=== PATIENT | female | born 1945 | race Caucasian/White ===

== ENCOUNTER 2019-05-16 00:46 | Outpatient (CLI) | payer MEDICARE, OTHER, SELFPAY ==
--- NOTE | 2019-05-16 16:30 | DI.MAMMO_ITS ---
SYMPTOM/DIAGNOSIS: SCREENING Z12.31 BILATERAL SCREENING MAMMOGRAM: Mammograms were interpreted according to the usual protocol including computer analysis with CAD system, tomosynthesis and C view imaging. Comparison is made with exams from 2010 through 2016. The breasts are composed of heterogeneously dense fibroglandular tissue in the subareolar regions, breast density category C. No suspicious masses or suspicious microcalcifications are seen. There has been no significant change. IMPRESSION: Category 1 negative mammogram. Yearly screening mammography is recommended. Breast density category C. MQSA ASSESSMENT OF FINDINGS: Negative. Category 1. Patient will receive a letter notifying them of these results. Bi-RADS category C. The breasts are heterogeneously dense, which may obscure small masses.
== END 2019-05-16 01:06 ==
PROVIDERS: PCP Family Medicine; Visit Provider Family Medicine
DX: Z12.31 Encounter for screening mammogram for malignant neoplasm of breast (principal)
CPT/HCPCS: 77063; 77067

== ENCOUNTER 2022-04-02 03:17 | Outpatient (CLI) | payer MEDICARE, OTHER, SELFPAY ==
[2022-04-02 13:12] LABS: Anion Gap 9.4 mmol/L (3-11); BUN 19 mg/dL (7-18); CO2 28.6 mmol/L (21.0-32.0); CREATININE 0.7 mg/dL (0.55-1.02); Calculated LDL 143 mg/dL (<100); Chloride 104 mmol/L (98-107); Cholesterol 231 mg/dL (<200); Glucose 98 mg/dL (74-106); HDL Cholesterol 60 mg/dL (40-60); Potassium 4.4 mmol/L (3.5-5.1); Sodium 142 mmol/L (136-145); Triglyceride 141 mg/dL (<150)
== END 2022-04-02 03:18 | disposition home or self-care (01) ==
LOC: LOS 03:30
PROVIDERS: PCP Family Medicine; Visit Provider Family Medicine
DX: I10 Essential (primary) hypertension (principal)
CPT/HCPCS: 36415; 80048; 80061

== ENCOUNTER 2023-09-04 02:22 | Outpatient (CLI) | payer MEDICARE, SELFPAY ==
[2023-09-04 12:21] LABS: CREATININE 0.9 mg/dL (0.55-1.02); Estimated GFR 65.44 (mL/min/1.73m2); Potassium 3.6 mmol/L (3.5-5.1)
== END 2023-09-04 02:23 | disposition home or self-care (01) ==
LOC: LOS 02:23
PROVIDERS: PCP Nurse Practitioner Family; Visit Provider Nurse Practitioner Family
DX: I10 Essential (primary) hypertension (principal)
CPT/HCPCS: 36415; 82565; 84132

== ENCOUNTER 2024-03-29 07:36 | Emergency (ER) | payer MEDICARE, SELFPAY ==
[2024-03-29 07:41] VITALS: BP 191/85; PULSE 95; RESP 20; TEMP 36.7; O2SAT 96
--- NOTE | 2024-03-29 07:59 | ED.GENADUL_ITS ---
Discharge Plan Disposition Patient Disposition: Home Condition: Improving Discharge Details Clinical Impression: Cough Primary Care Provider: George Davis ED Provider: Stephan Castorena Home Meds and New Rx's Prescriptions: New albuterol sulfate 90 mcg/actuation aerosol powdr breath activated 2 inh inhalation Q6H PRN (Reason: shortness of breath or wheezing) Qty: 1 0RF No Action triamcinolone acetonide 0.1 % ointment 1 applic topical BID Qty: 15 0RF multivitamin 1 EACH tablet 1 tab PO DAILY losartan 50 mg tablet 50 mg PO DAILY Qty: 90 3RF hydrochlorothiazide 12.5 mg capsule 12.5 mg PO DAILY 90 Days Qty: 90 3RF acetaminophen [Tylenol] 325 MG tablet 1 tab PO PRN PRN Discharge Instructions Instructions: Acute Cough (ED) HPI General Date/Time Provider Initiated Documentation: 03/29/24 07:38 . HPI Narrative: 78-year-old female presents with 3 days of nonproductive cough. with similar symptomatology over the last week. No chest pain no nausea no vomiting no fevers. Related Data Home Medications Medication Instructions Recorded Confirmed multivitamin 1 tab PO DAILY 04/13/13 03/29/24 acetaminophen 325 mg tablet 1 tab PO PRN PRN 03/18/15 03/29/24 (Tylenol) triamcinolone acetonide 0.1 % 1 applic topical BID #15 grams 02/25/23 03/29/24 topical ointment hydrochlorothiazide 12.5 mg capsule 12.5 mg PO DAILY 90 days #90 09/23/23 03/29/24 tab-caps losartan 50 mg tablet 50 mg PO DAILY #90 tab-caps 09/23/23 03/29/24 albuterol sulfate 90 mcg/actuation 2 inh inhalation Q6H PRN shortness 03/29/24 breath activated powder inhaler of breath or wheezing #1 ea Previous Rx's Medication Instructions Recorded triamcinolone acetonide 0.1 % 1 applic topical BID #15 grams 02/25/23 topical ointment hydrochlorothiazide 12.5 mg capsule 12.5 mg PO DAILY 90 days #90 09/23/23 tab-caps losartan 50 mg tablet 50 mg PO DAILY #90 tab-caps 09/23/23 albuterol sulfate 90 mcg/actuation 2 inh inhalation Q6H PRN shortness 03/29/24 breath activated powder inhaler of breath or wheezing #1 ea Allergies Allergy/AdvReac Type Severity Reaction Status Date / Time Penicillins Allergy Intermediate passes out Unverified 03/29/24 08:03 hydrocodone Allergy Mild HIVES Unverified 03/29/24 08:03 monosodium glutamate AdvReac Hives Unverified 03/29/24 08:03 General Stated Complaint: RespSymp REEMA: 4 Review of Systems Narrative: Review of Systems Constitutional: negative Eyes: negative ENT: negative Cardiovascular: negative Respiratory: Cough Gastrointestinal: negative : negative Musculoskeletal: negative Skin: negative Neurologic: negative Psych: negative Exam Narrative Exam Narrative: Physical Examination General: alert, awake, cooperative, resting comfortably, no acute distress HEENT: normocephalic, atraumatic; PERRL, EOM intact, conjunctiva normal; no nasal discharge; moist mucous membranes, oral and pharyngeal mucosa normal, tolerating secretions Neck: supple, trachea midline; full ROM Chest: normal to inspection Respiratory: normal respiratory effort, speaking in full sentences, clear to auscultation, no wheezing, rales or rhonchi Cardiac: regular rate, regular rhythm, S1S2 intact, no murmurs rubs or gallops GI: abdomen soft, non-tender, non-distended; no palpable mass or hepatosplenomegaly Skin: no lesions, rashes or trauma appreciated Neuro: AAOx3, normal speech, moving all extremities Extremities: No peripheral edema Psych: Appropriate mood and affect Course Vital Signs Vital signs: Vital Signs Temperature 36.7 C 03/29/24 07:41 Pulse 95 H 03/29/24 07:41 Respiratory Rate 20 03/29/24 07:41 Blood Pressure 191/85 H 03/29/24 07:41 Pulse Oximetry 96 03/29/24 07:41 Temperature 36.7 C 03/29/24 07:41 Temperature Source Skin 03/29/24 07:41 Pulse 95 H 03/29/24 07:41 Respiratory Rate 20 03/29/24 07:41 Respiratory Effort Normal, Non-Labored 03/29/24 07:53 Respiratory Depth Normal 03/29/24 07:53 Blood Pressure 191/85 H 03/29/24 07:41 Blood Pressure Position Sitting 03/29/24 07:41 Pulse Oximetry 96 03/29/24 07:41 Oxygen Delivery Method Room Air 03/29/24 07:41 Oxygen Flow Rate 0 03/29/24 07:41 Pain Level 0 03/29/24 07:41 Medical Decision Making 78-year-old female presents with 3 days of nonproductive cough. with similar symptomatology over the last week. No chest pain no nausea no vomiting no fevers. Resting comfortably no acute distress, afebrile nontoxic not hypoxic, no peripheral edema, no chest pain, lungs clear bilaterally speaking full sentences no wheezing. Consider viral URI versus reactive airway to environmental allergen lower suspicion for ACS PE pneumothorax, must consider pneumonia lower suspicion for CHF or aortic pathology. Screening chest x-ray, nebs steroids close reassessment 9: 07 patient resting actively no acute distress lungs clear bilaterally x-ray clear. Quality:SDOH Health Related Social Needs: Health related social needs risk of homeless PFSH All Active Problems (Updated 03/29/24 @ 09:07 by Stephan Castorena MD) Cough (Acute) Essential hypertension (Acute) Medical History Thrombophlebitis Surgical History Extraction of cataract B/L Family History Mother , 85 No problems noted. Father , 85 Heart disease Sister No problems noted. Brother No problems noted. Daughter No problems noted. Son No problems noted. Maternal Grandfather No problems noted. Maternal Grandmother No problems noted. 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 Pets and animals: No Sexually active: No Current gender identity: female What is your relationship status?: How often do you talk on the phone with friends or family?: three or more times per week How often do you attend christianity or hinduism services?: 4 or more times per year Do you belong to any clubs or organized social groups?: no Panel score (0-1 are the most socially isolated patients): 3 What type of physical activity do you participate in: walking Duration: 30-45 minutes/day Pina/Restorationism: Mandaen Special pina needs: No Agree to transfusion: Yes Seatbelt use: always Helmet use: Yes Drive intox or ride w/intox 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
[2024-03-29 08:03] VITALS: RESP 2
[2024-03-29] MEDS: Dexamethasone 10 MG/ML VIAL PO (08:03)
[2024-03-29] MEDS: Albuterol 2.5 MG/3 ML INH SOLN VIAL UPD (08:03)
--- NOTE | 2024-03-29 08:56 | DI.RAD_ITS ---
Exam(s) XR CHEST 2V PA LATERAL EXAM: XR CHEST 2V PA LATERAL CLINICAL HISTORY: dry cough. TECHNIQUE: 2D digital imaging was performed. COMPARISON: No exams were available for comparison FINDINGS: 2 views: Heart size is normal. The mediastinum is not widened. Lungs are clear. No infiltrates nor pleural effusions. IMPRESSION: No acute pulmonary findings. DATA REPOSITORY: RADIATION DOSE DELIVERED:
[2024-03-29 09:17] VITALS: BP 139/98; PULSE 85; RESP 18; TEMP 36.6; O2SAT 95
== END 2024-03-29 09:18 | disposition home or self-care (01) ==
LOC: ER 09:14
PROVIDERS: Emergency Provider Emergency Medicine; PCP Nurse Practitioner Family
DX: R05.9 Cough, unspecified (principal); R09.81 Nasal congestion; I10 Essential (primary) hypertension
CPT/HCPCS: 94640; 99284; 71046; 99283; J1100; J7613

== ENCOUNTER 2024-04-01 09:27 | Emergency (ER) | payer MEDICARE, SELFPAY ==
[2024-04-01 09:35] VITALS: PULSE 96; RESP 16; TEMP 36.6; O2SAT 95
--- NOTE | 2024-04-01 10:00 | DI.RAD_ITS ---
Exam(s) XR CHEST 2V PA LATERAL EXAM: XR CHEST 2V PA LATERAL CLINICAL HISTORY: cough TECHNIQUE: 2D digital imaging was performed of the chest. Two images were obtained. PA and lateral views were obtained. COMPARISON: CR XR CHEST 2V PA LATERAL from 03/29/2024 FINDINGS: MEDIASTINUM: Normal. HEART: Normal. PULMONARY VASCULATURE: Normal. LUNGS: Clear. PLEURAL SPACE: No pleural effusion or pneumothorax. BONE:Within normal limits for the patient's age. OTHER FINDINGS:Normal. IMPRESSION: No acute pulmonary findings. DATA REPOSITORY: RADIATION DOSE DELIVERED:
--- NOTE | 2024-04-01 10:00 | RT.EKG_ITS ---
APPROVED REPORT Exam: Resting ECG Reason for Exam: abnormal rhythm Patient Location: E HR:97 bpm ECG Measurements Heart Rate 97 AXIS OH 147 P 16 QRSd 86 QRS 36 QT 353 T 31 QTc 445 Conclusion Sinus rhythm...normal P axis, V-rate 60- 99
[2024-04-01 11:06] LABS: COVID-19 PCR Negative (Negative); Influenza A PCR Negative (Negative); Influenza B PCR Negative (Negative); RSV PCR Negative (Negative)
[2024-04-01 11:07] LABS: Source Nasopharynx
--- NOTE | 2024-04-01 11:30 | ED.GENADUL_ITS ---
Discharge Plan Disposition Patient Disposition: Home Condition: Stable Discharge Details Clinical Impression: Cough, Bronchitis Primary Care Provider: George Davis ED Provider: Will Case Home Meds and New Rx's Prescriptions: Continued triamcinolone acetonide 0.1 % ointment 1 applic topical BID Qty: 15 0RF multivitamin 1 EACH tablet 1 tab PO DAILY losartan 50 mg tablet 50 mg PO DAILY Qty: 90 3RF hydrochlorothiazide 12.5 mg capsule 12.5 mg PO DAILY 90 Days Qty: 90 3RF acetaminophen [Tylenol] 325 MG tablet 1 tab PO PRN PRN albuterol sulfate 90 mcg/actuation aerosol powdr breath activated 2 inh inhalation Q6H PRN (Reason: shortness of breath or wheezing) Qty: 1 0RF Discharge Instructions Instructions: Acute Bronchitis (ED) Additional Instructions: Please drink plenty of fluids and allow for plenty of rest. Please contact your primary care physician to arrange follow-up. Call today to arrange timely follow-up for early next week. Return to the ER immediately for any worsening or new concerning symptoms. Referrals: George Davis, BANK CLERK [Primary Care Provider] - Discharge Data Discharge Date/Time-TO BE ENTERED AT DEPARTURE: 04/01/24 12:03 HPI General Mode of arrival: ambulatory . Date/Time Provider Initiated Documentation: 04/01/24 09:38 . Limitations to Documentation: no limitations . Information obtained by: patient . HPI Narrative: 78-year-old female here with nonproductive cough for the past 6 days. She was seen here on 03/29/2024 for same cough which she had had 3 days at that time. She had chest x-ray that did not reveal infiltrate. She was albuterol treatment and prescribed albuterol inhaler. She notes continued dry cough going on now 6 days. Patient denies associated chest pain. No leg swelling. She does note subjective fever. Related Data Home Medications Medication Instructions Recorded Confirmed multivitamin 1 tab PO DAILY 04/13/13 04/01/24 acetaminophen 325 mg tablet 1 tab PO PRN PRN 03/18/15 04/01/24 (Tylenol) triamcinolone acetonide 0.1 % 1 applic topical BID #15 grams 02/25/23 04/01/24 topical ointment hydrochlorothiazide 12.5 mg capsule 12.5 mg PO DAILY 90 days #90 09/23/23 04/01/24 tab-caps losartan 50 mg tablet 50 mg PO DAILY #90 tab-caps 09/23/23 04/01/24 albuterol sulfate 90 mcg/actuation 2 inh inhalation Q6H PRN shortness 03/29/24 04/01/24 breath activated powder inhaler of breath or wheezing #1 ea Previous Rx's Medication Instructions Recorded triamcinolone acetonide 0.1 % 1 applic topical BID #15 grams 02/25/23 topical ointment hydrochlorothiazide 12.5 mg capsule 12.5 mg PO DAILY 90 days #90 09/23/23 tab-caps losartan 50 mg tablet 50 mg PO DAILY #90 tab-caps 09/23/23 albuterol sulfate 90 mcg/actuation 2 inh inhalation Q6H PRN shortness 03/29/24 breath activated powder inhaler of breath or wheezing #1 ea Allergies Allergy/AdvReac Type Severity Reaction Status Date / Time Penicillins Allergy Intermediate passes out Unverified 04/01/24 09:35 hydrocodone Allergy Mild HIVES Unverified 04/01/24 09:35 monosodium glutamate AdvReac Hives Unverified 04/01/24 09:35 General Stated Complaint: RespSymp REEMA: 3 Review of Systems All systems reviewed & are unremarkable except as noted in HPI and below Constitutional Constitutional: Reports fever(s) Cardiovascular Cardiovascular: Denies chest pain Respiratory Respiratory: Reports cough Exam Const General: cooperative and no acute distress HENMT Mouth: moist mucous membranes Eyes Conjunctivae: normal conjunctivae Sclera: normal sclerae Neck Neck: trachea midline and supple Resp Auscultation: clear to auscultation bilaterally, no rales, no rhonchi and no wheezes Cardio Rate: regular rate and not tachycardic Rhythm: regular rhythm GI Palpation: soft, not firm, no guarding, no masses, not rigid and nontender Skin General skin exam: no rashes or lesions noted Neuro General: patient alert, patient awake, patient oriented x3 and tone normal Extrem General: no pedal edema, no calf tenderness and no edema Course Vital Signs Vital signs: Vital Signs Temperature 36.6 C 04/01/24 09:35 Pulse 96 H 04/01/24 09:35 Respiratory Rate 16 04/01/24 09:35 Pulse Oximetry 95 04/01/24 09:35 Temperature 36.6 C 04/01/24 09:35 Temperature Source Oral 04/01/24 09:35 Pulse 96 H 04/01/24 09:35 Respiratory Rate 16 04/01/24 09:35 Respiratory Effort Normal, Non-Labored 04/01/24 09:38 Respiratory Depth Normal 04/01/24 09:38 Pulse Oximetry 95 04/01/24 09:35 Oxygen Delivery Method Room Air 04/01/24 09:35 Oxygen Flow Rate 0 04/01/24 09:35 Pain Level 6 04/01/24 09:35 Lab/Test Results Lab/Test Results: Laboratory Tests Range/Units 04/01/24 10:18 COVID-19 Source Nasopharynx SARS-CoV-2 (PCR) (Negative) Negative Influenza Type A (PCR) (Negative) Negative Influenza Type B (PCR) (Negative) Negative RSV (PCR) (Negative) Negative Medical Decision Making 78-year-old female here with nonproductive cough for the past 6 days. Patient is afebrile and hemodynamically stable. She does have irregular rhythm noted on examination. Patient is saturating well in no respiratory distress. Considered influenza and COVID. Fluvid negative. EKG was reviewed and interpreted by me: Please report, sinus rhythm 97 bpm, multiple premature complexes. Chest x-ray reviewed and interpreted by radiology: No acute pulmonary findings. Suspect viral respiratory infection. Plan for outpatient follow-up with PCP. All results were discussed with the patient. Usual customary discharge instructions reviewed. Patient should have close outpatient follow-up next week for reassessment. Quality:SDOH Health Related Social Needs: Health related social needs risk of homeless PFSH All Active Problems Bronchitis (Acute) Cough (Acute) Essential hypertension (Acute) Medical History Thrombophlebitis Surgical History Extraction of cataract B/L Family History Mother , 85 No problems noted. Father , 85 Heart disease Sister No problems noted. Brother No problems noted. Daughter No problems noted. Son No problems noted. Maternal Grandfather No problems noted. Maternal Grandmother No problems noted. 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 Pets and animals: No Sexually active: No Current gender identity: female What is your relationship status?: How often do you talk on the phone with friends or family?: three or more times per week How often do you attend advent or moravian services?: 4 or more times per year Do you belong to any clubs or organized social groups?: no Panel score (0-1 are the most socially isolated patients): 3 What type of physical activity do you participate in: walking Duration: 30-45 minutes/day Pina/Rastafarian: Sabianist Special pina needs: No Agree to transfusion: Yes Seatbelt use: always Helmet use: Yes Drive intox or ride w/intox 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 Drive intox or w/intox 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: rarely Working smoke detector in home: Yes Carbon monox detector in home: Yes Do you feel safe at home: Yes Do you feel safe in your relationship?: Yes Victim of physical abuse: No Victim of emotional abuse: No Victim of sexual abuse: No Additional Social history: goes to [place] for winter PAW Have you Been Recently Intoxicated or Drunk Within the Last 30 days?: No Have you Ever Experienced Previous Episodes of Alcohol Withdrawal?: No Have you ever Experienced Withdrawal Seizures?: No Have you ever Experienced Delirium Tremens(DT)s?: No Have you ever undergone Alcohol Rehabilitation Treatment (i.e, inpt ot outpatient treatment programs)?: No Have you ever Experienced Blackouts?: No Have you ever Combined Alcohol with other Downers within the last 90 days?: No Have you ever Combined Alcohol with any other Substance of Abuse during the last 90 days?: No Positive Blood Alcohol level on Presentation? [PCS.BAL]: No Evidence of Increased Autonomic Activity (i.e. HR>120, tremor, sweating, agitation, nausea)?: No Result: 0
[2024-04-01 12:02] VITALS: BP 134/76; PULSE 90; RESP 16; TEMP 36.6; O2SAT 95
== END 2024-04-01 12:03 | disposition home or self-care (01) ==
PROVIDERS: Emergency Provider Student in an Organized Health Care Education/Training Program; PCP Nurse Practitioner Family
DX: J40 Bronchitis, not specified as acute or chronic (principal); R05.1 Acute cough; R51.9 Headache, unspecified
CPT/HCPCS: 87637; 93005; 99283; 71046; 93010

== ENCOUNTER 2024-09-14 10:32 | Outpatient (CLI) | payer MEDICARE, SELFPAY ==
[2024-09-14 12:48] LABS: Anion Gap 10.1 mmol/L (3-11); BUN 20 mg/dL (7-18); CO2 26.9 mmol/L (21.0-32.0); CREATININE 0.8 mg/dL (0.55-1.02); Calcium 9.4 mg/dL (8.5-10.1); Calculated LDL 98 mg/dL (<100); Chloride 107 mmol/L (98-107); Cholesterol 192 mg/dL (<200); Glucose 117 mg/dL (74-106); HDL Cholesterol 56 mg/dL (40-60); Sodium 144 mmol/L (136-145); Triglyceride 190 mg/dL (<150)
== END 2024-09-14 10:33 | disposition home or self-care (01) ==
LOC: LOS 10:34
PROVIDERS: PCP Nurse Practitioner Family; Visit Provider Nurse Practitioner Family
DX: Z13.6 Encounter for screening for cardiovascular disorders (principal); Z13.1 Encounter for screening for diabetes mellitus; Z23 Encounter for immunization; I10 Essential (primary) hypertension; Z00.00 Encounter for general adult medical examination without abnormal findings
CPT/HCPCS: 36415; 80048; 80061